=== PATIENT | male | born 1965 | race Caucasian/White ===

== ENCOUNTER 2018-07-17 08:28 | Emergency (ER) | payer MEDICAID ==
[~2018-07-17] VITALS: Ht 182.9 cm; Wt 86.2 kg
[2018-07-17 09:19] VITALS: BP 148/86
== END 2018-07-17 11:25 | disposition home or self-care (01) ==
LOC: ER 08:28
DX: F41.9 Anxiety disorder, unspecified (principal)
CPT/HCPCS: 70450

== ENCOUNTER 2021-09-22 19:05 | Emergency (ER) | payer MEDICAID ==
[~2021-09-22] VITALS: Ht 182.9 cm; Wt 86.2 kg
[2021-09-22] MEDS ORDERED: TETANUS-DIPTH-ACEL PERTUSSIS 0.5ML SYR Tdap IM ONE (19:45)
[2021-09-22 20:13] LABS: Basophils # (auto) 0.2 10 ^3/uL (0-0.2); Basophils % (auto) 2.5 % (0.0-2.0); Eosinophils # (auto) 0.2 10 ^3/uL (0-0.8); Eosinophils % (auto) 2.2 % (0.0-7.0); Hematocrit 41.4 % (41.0-53.0); Lymphocytes # (auto) 1.2 10 ^3/uL (0.4-5.4); Lymphocytes % (auto) 12.1 % (10.0-50.0); Mean Corpuscular Hemoglobin 31.9 pg (28.0-32.0); Mean Corpuscular Hgb Conc. 33.8 g/dL (32.0-36.0); Mean Corpuscular Volume 94.3 fL (80.0-100.0); Monocytes # (auto) 0.6 10 ^3/uL (0-1.3); Neutrophils # (auto) 7.4 10 ^3/uL (1.6-8.6); Neutrophils % (auto) 77.2 % (37.0-80.0); Red Blood Cells 4.39 10^6/uL (4.5-5.90); Red Cell Distribution Width 12.3 % (11.8-14.3); White Blood Cell 9.6 10^3/uL (4.4-10.8)
[2021-09-22 20:25] LABS: Albumin 3.5 g/dL (3.4-5.0); Calcium 8.9 mg/dL (8.5-10.1); Potassium 4.1 mmol/L (3.5-5.1)
[2021-09-22 20:30] LABS: Bilirubin, Total 0.3 mg/dL (0.2-1.0); Total Protein 6.9 g/dL (6.4-8.2)
[2021-09-22 20:47] LABS: INR 0.99 (0.9-1.15)
[2021-09-22] MEDS ORDERED: NEOMYCIN-BACITRACIN-POLYM UNITDOSE PKG TOP OINT TOP ONE (21:15)
[2021-09-22] MEDS ORDERED: LIDOCAINE 1% HCL (LOCAL ANESTH.) INJ 20ML MDV ID ONE (21:15)
[2021-09-22] MEDS ORDERED: cefTRIAXone 1GM/50ML D5W 50 ML IV ONE (23:30)
[2021-09-23 00:50] VITALS: BP 126/60
== END 2021-09-23 00:59 | disposition home or self-care (01) ==
LOC: ER 19:05 → EDBD 19:05 → ER 09-23 00:59
DX: S01.21XA Laceration without foreign body of nose, initial encounter (principal); F15.10 Other stimulant abuse, uncomplicated; V19.9XXA Pedal cyclist (driver) (passenger) injured in unspecified traffic accident, initial encounter; Y93.89 Activity, other specified; Y92.89 Other specified places as the place of occurrence of the external cause; Y99.8 Other external cause status
CPT/HCPCS: 12015; 36415; 70450; 70486; 71045; 72125; 80053; 85025; 85610; 90471; 90715; 96365; 99285; J0696; J2001

== ENCOUNTER 2024-06-30 09:41 | Emergency (ER) | payer MEDICAID ==
[~2024-06-30] VITALS: Ht 182.9 cm; Wt 101.6 kg
[2024-06-30 11:48] LABS: Basophils # (auto) 0.1 10 ^3/uL (0-0.2); Basophils % (auto) 1.2 % (0.0-2.0); Eosinophils # (auto) 0.2 10 ^3/uL (0-0.8); Eosinophils % (auto) 2.3 % (0.0-7.0); Hematocrit 46.5 % (41.0-53.0); Hemoglobin 16.3 g/dL (13.5-17.5); Lymphocytes # (auto) 2.2 10 ^3/uL (0.4-5.4); Lymphocytes % (auto) 32.5 % (10.0-50.0); Mean Corpuscular Volume 94.2 fL (80.0-100.0); Monocytes # (auto) 0.5 10 ^3/uL (0-1.3); Neutrophils # (auto) 3.8 10 ^3/uL (1.6-8.6); Nucleated Red Blood Cells % 0.1 %; Platelet Count (auto) 212 10^3/uL (140-450); Red Blood Cells 4.94 10^6/uL (4.5-5.90); Red Cell Distribution Width 12.9 % (11.8-14.3); White Blood Cell 6.7 10^3/uL (4.4-10.8)
[2024-06-30 12:05] LABS: Alanine Aminotransferase 33 U/L (7-40); Albumin 4.3 g/dL (3.2-4.8); Alkaline Phosphatase 88 U/L (46-116); Anion Gap 4 (5-15); Aspartate Aminotransferase 23 U/L (13-40); BUN/Creatinine Ratio 17.2 (10.0-20.0); Blood Urea Nitrogen 15 mg/dL (9-23); Calcium 10.3 mg/dL (8.7-10.4); Carbon Dioxide 26 mmol/L (20-30); Chloride 108 mmol/L (98-107); Glucose 126 mg/dL (74-106); Potassium 4.1 mmol/L (3.5-5.1); Sodium 138 mmol/L (136-145)
[2024-06-30 12:06] LABS: Bilirubin, Total 0.6 mg/dL (0.2-1.0); Total Protein 7.1 g/dL (5.7-8.2)
[2024-06-30 12:17] LABS: Lipase 73 U/L (12-53)
[2024-06-30 13:33] VITALS: BP 148/92; PULSE 76; RESP 16; TEMP 98.3; O2SAT 98
[2024-06-30] MEDS: HYDROcodone-ACET 5/325MG TAB PO ONE (13:49)
[2024-06-30] MEDS: KETOROLAC TROMETH 60MG/2ML VIAL IM ONE (13:49)
== END 2024-06-30 13:50 | disposition home or self-care (01) ==
LOC: ER 09:41
DX: K46.9 Unspecified abdominal hernia without obstruction or gangrene (principal); M54.2 Cervicalgia; G89.29 Other chronic pain
CPT/HCPCS: 36415; 72125; 74176; 80053; 83605; 83690; 84484; 85025; 96372; 99285; J1885

== ENCOUNTER 2024-11-02 07:01 | Emergency (ER) | payer MEDICAID ==
[~2024-11-02] VITALS: Ht 182.9 cm; Wt 101.6 kg
--- NOTE | 2024-11-02 07:32 | ED.PDOC ---
History of Present Illness HPI Comments 59 y/o M presents with c/o decreased urinary output and erectile dysfunction for the past 5x days, today. Patient endorses on minimal urine production w/mild associated pain amidst increase fluid intake, in addition to being unable to perform at his usual sexual activity level. Patient reports no medical Hx aside from back pain. He denies any hematuria, weakness, groin pain, incontinence, or other associated symptoms or modifiers at this time. Chief Complaint: Urinary Time Seen by MD: 07:20 Primary Care Provider: unknown Allergies: Coded Allergies: NO KNOWN ALLERGIES (Unverified , 07/17/18) Mode of Arrival: Ambulatory Severity: Moderate Timing: Days Duration: Since onset Prehospital treatment: None Past Medical History Past Medical History (Other): chronic back pain Surgical History: Denies all surgeries Family History Family History: Unknown Social History Smoker: Non-Smoker Alcohol: Denies ETOH Use Drugs: Denies Drug Use Lives In: Home Genitourinary: reports: dysuria, frequency, others (erectile dysfunction ) All Other Systems: Reviewed and Negative (negative unless otherwise stated above or in HPI) Physical Exam General Appearance: Moderate Distress HEENT: Normal ENT Inspection, Pharynx Normal, TMs Normal Neck: Full Range of Motion, Non-Tender, Normal, Normal Inspection Respiratory: Chest Non-Tender, Lungs Clear, No Accessory Muscle Use, No Res piratory Distress, Normal Breath Sounds Cardiovascular: No Edema, No JVD, No Murmur, No Gallop, Normal Peripheral Pulses, Regular Rate/Rhythm Breast Exam: Deferred Gastrointestinal: No Organomegaly, Non Tender, No Pulsatile Mass, Normal Bowel Sounds, Soft Genitalia: Deferred Pelvic: Deferred Rectal: Deferred Extremities: No calf tenderness, Normal capillary refill, Normal inspection, Normal range of motion, Non-tender, No pedal edema Musculoskeletal : Apperance: Normal Neurologic: Alert, supervisor mattress and boxsprings II-XII nml as Tested, No Motor Deficits, Normal Affect, Normal Mood, No Sensory Deficits Cerebellar Function: Normal Reflexes: Normal Skin: Dry, Normal Color, Warm Peripheral Pulses: 3+ Radial (R), 3+ Radial (L) Lymphatic: No Adenopathy Was a procedure done? Was a procedure done?: No Differential Dx Considerations may include: erectile dysfunction, epididymis, UTI, urethral blockage X-Ray, Labs, Meds, VS Vital Signs Date Time Temp Pulse Resp B/P (MAP) Pulse Ox O2 Delivery O2 Flow Rate FiO2 11/02/24 08:40 97.9 84 20 121/74 (90) 99 97.9 11/02/24 08:40 20 20 99 Room Air 11/02/24 07:17 97.9 95 18 115/83 (94) 100 Lab Test 11/02/24 07:15 Range/Units Urine Color Light-yellow Yellow Urine Clarity Clear Clear Urine pH 5.5 5.0-9.0 Urine Specific [place] 1.007 1.001-1.035 Urine Protein Negative Negative Urine Ketones Negative Negative Urine Blood Negative Negative /uL Urine Nitrite Negative Negative Urine Bilirubin Negative Negative Urine Urobilinogen Normal Negative mg/dL Urine Leukocyte Esterase Negative Negative /uL Urine RBC <1 0 - 3 /hpf Urine WBC None seen 0 - 3 /hpf Urine Squamous Epithelial Cells None seen <5 /hpf Urine Bacteria None seen None Seen /hpf Urine Glucose Normal Normal mg/dL Patient alert. Complaining of urinary symptoms. Vitals stable. Answering all questions. Ambulating. Abdomen is soft nontender. Explained to the patient. Was told to follow up with his primary care physician. Was told to come back if there is any problem. Time of 1ST Reevaluation: 07:50 Reevaluation 1ST: Improved Patient Education/Counseling: Diagnosis, Treatment Family Education/Counseling: No Family Present Departure 1 Departure Time of Disposition: 07:52 Impression: Primary Impression: Urinary tract infection Qualified Codes: N30.00 - Acute cystitis without hematuria Disposition: 01 HOME / SELF CARE / HOMELESS Condition: Good e-Prescriptions Sulfamethoxazole W/Trimethopri (Bactrim Ds Tablet) 1 Tab Tb 1 TAB PO BID for 5 Days, #10 TAB Prov: TONIE LENZ MD 11/02/24 Discharged With: Self Critical Care Note Critical Care Time?: No Stability Stability form required: No Heart Score Heart Score: Heart Score Response (Comments) Value History N/A 0 EKG N/A 0 Age N/A 0 Risk Factors N/A 0 Troponin N/A 0 Total 0 I personally scribed for TONIE LENZ MD ([email or web address]) on 11/02/24 at 07:32. Electronically submitted by Randy Wilkins [email or web address]). TONIE LENZ MD Nov 02, 2024 07:32
[2024-11-02 08:16] LABS: Urine Bacteria None Seen /hpf (None Seen); Urine WBC None Seen /hpf (0 - 3)
[2024-11-02 08:20] LABS: Urine Blood Negative /uL (Negative); Urine Clarity Clear (Clear); Urine Color Light-Yellow (Yellow); Urine Protein, UAD Negative (Negative); Urine Specific Gravity 1.007 (1.001-1.035); Urine Squamous Epithelial Cell None Seen /hpf (<5); Urine Urobilinogen Normal (Negative); Urine pH 5.5 (5.0-9.0)
[2024-11-02 08:40] VITALS: BP 121/74; PULSE 20; RESP 20; TEMP 97.9; O2SAT 99
[2024-11-02] MEDS ORDERED: BACDST PO (09:28)
== END 2024-11-02 09:36 | disposition home or self-care (01) ==
LOC: ER 07:01
DX: N39.0 Urinary tract infection, site not specified (principal); G89.29 Other chronic pain
CPT/HCPCS: 81001